=== PATIENT | female | born 1970 | race Caucasian/White ===

== ENCOUNTER 2018-10-05 10:10 | Emergency (ER) | payer SELFPAY ==
[~2018-10-05] VITALS: Ht 154.9 cm; Wt 77.7 kg
[2018-10-05] MEDS ORDERED: LEVOTHYROXIN125 MCG PO (11:40)
[2018-10-05] MEDS ORDERED: ALDACTONE25 MG PO (11:40)
[2018-10-05] MEDS ORDERED: MONTELUKAST SOD10 MG PO (11:41)
[2018-10-05] MEDS ORDERED: PRILOSEC20 MG/CAP PO (11:43)
[2018-10-05 13:42] VITALS: BP 123/83
== END 2018-10-05 13:48 | disposition home or self-care (01) | DRG 556 ==
LOC: ED 10:10
DX: M25.562 Pain in left knee (principal); M79.18 Myalgia, other site; E03.9 Hypothyroidism, unspecified
CPT/HCPCS: L1830